=== PATIENT | male | born 1965 | race African-American/Black ===

== ENCOUNTER 2018-08-09 20:42 | Emergency (ER) | payer OTHER ==
[~2018-08-09] VITALS: Ht 182.9 cm; Wt 95.3 kg
[2018-08-09 20:47] VITALS: BP_SYST 151
[2018-08-09 21:25] VITALS: BP_SYST 146
== END 2018-08-09 21:25 | disposition home or self-care (01) ==
LOC: SED 20:42
DX: L60.0 Ingrowing nail (principal); M10.9 Gout, unspecified
CPT/HCPCS: 99282

== ENCOUNTER 2020-08-14 11:22 | Emergency (ER) | payer OTHER ==
[~2020-08-14] VITALS: Ht 182.9 cm; Wt 95.3 kg
[2020-08-14 11:36] VITALS: BP_SYST 147
--- NOTE | 2020-08-14 11:36 | NUR ---
Patient to ER bed 01 to gown for evaluation. Side rails up.
--- NOTE | 2020-08-14 11:38 | NUR ---
Patient arrived in the ED c/o generalized weakness and increased respiratory right lower gum pain that started today. Denied any chest pain or shortness of breath. Denied any fevers, chills, nausea or vomiting. Patient is alert and oriented x4, respirations even and unlabored, speaking in full sentences, and ambulating with a steady gait. VSS, pain level 8/10. Informed of the approximate wait time. Instructed to notify ED staff for any changes in condition or worsening of symptoms while waiting to be seen by an ED provider. Patient verbalized understanding.
--- NOTE | 2020-08-14 11:40 | NUR ---
ER Dr. Jada Rice at bedside examining patient.
[2020-08-14] MEDS ORDERED: KETOROLAC TROMETHAMINE 60 MG/2 ML VIAL IM ONE ×2 (12:00)
--- NOTE | 2020-08-14 12:18 | NUR ---
Patient given written and verbal discharge instructions and verbalizes understanding. ER MD discussed with patient the results and treatment provided. Patient in stable condition. ID arm band removed. Rx of [place] and PenV given. Patient educated on pain management and to follow up with PMD. Pain Scale 0/10. Opportunity for questions provided and answered. Medication side effect fact sheet provided.
[2020-08-14 12:20] VITALS: BP_SYST 147
== END 2020-08-14 12:18 | disposition home or self-care (01) ==
LOC: SED 11:22
DX: K04.7 Periapical abscess without sinus (principal)
CPT/HCPCS: 96372; 99283; J1885

== ENCOUNTER 2021-04-06 06:14 | Emergency (ER) | payer OTHER ==
[~2021-04-06] VITALS: Ht 182.9 cm; Wt 113.4 kg
[2021-04-06 06:20] VITALS: BP_SYST 139
--- NOTE | 2021-04-06 06:22 | NUR ---
Patient to ER bed 5 to gown for evaluation. Side rails up.
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
--- NOTE | 2021-04-06 06:39 | NUR ---
ER Dr. Barraza at bedside for patient evaluation.
--- NOTE | 2021-04-06 06:55 | NUR ---
Patient taken to CT scan via ambulatory accompanied with radiology staff.
--- NOTE | 2021-04-06 07:11 | NUR ---
Report given to KAMALJIT Worley who will assume all care of patient.
[2021-04-06] MEDS ORDERED: ACET325T53 PO (08:08)
--- NOTE | 2021-04-06 08:14 | NUR ---
Patient given written and verbal discharge instructions and verbalizes understanding. ER MD discussed with patient the results and treatment provided. Patient in stable condition. ID arm band removed. Rx of ACETAMINOPHEN given. Patient educated on pain management and to follow up with PMD. Pain Scale 0/10. Opportunity for questions provided and answered. Medication side effect fact sheet provided.
[2021-04-06 08:26] VITALS: BP_SYST 139
== END 2021-04-06 08:14 | disposition home or self-care (01) ==
LOC: SED 06:14
DX: S01.81XA Laceration without foreign body of other part of head, initial encounter (principal); Z79.899 Other long term (current) drug therapy; V49.49XA Driver injured in collision with other motor vehicles in traffic accident, initial encounter; Y93.89 Activity, other specified; Y92.89 Other specified places as the place of occurrence of the external cause; Y99.8 Other external cause status
CPT/HCPCS: 70450-TC; 76376; 99284

== ENCOUNTER 2021-04-12 21:38 | Emergency (ER) | payer OTHER ==
[~2021-04-12] VITALS: Ht 182.9 cm; Wt 97.5 kg
[~2021-04-12 21:38] MED LIST: ACET325T53 PO
[2021-04-12 22:05] VITALS: BP_SYST 123
[2021-04-12 23:05] VITALS: BP_SYST 123
== END 2021-04-12 23:05 | disposition home or self-care (01) ==
LOC: SED 21:38
DX: S01.81XD Laceration without foreign body of other part of head, subsequent encounter (principal); Z48.02 Encounter for removal of sutures; V89.2XXD Person injured in unspecified motor-vehicle accident, traffic, subsequent encounter
CPT/HCPCS: 99281